=== PATIENT | female | born 1940 | race Caucasian/White ===

== ENCOUNTER 2017-03-01 07:51 | Day surgery (SDC) | payer OTHER ==
[~2017-03-01 07:51] MED LIST: PROPOFOL 500 MG/50 ML EMU IV ONE
[2017-03-01] MEDS ORDERED: PROPOFOL 10 MG/ML EMU IV ONE (09:59)
[2017-03-01 10:49] VITALS: BP 161/88; PULSE 70; RESP 18; TEMP 97.6; O2SAT 98
== END 2017-03-01 11:24 | disposition home or self-care (01) | DRG 951 ==
LOC: SURG 07:51
PROVIDERS: ATTEND Surgery
DX: Z12.11 Encounter for screening for malignant neoplasm of colon (principal); K57.30 Diverticulosis of large intestine without perforation or abscess without bleeding; Z85.038 Personal history of other malignant neoplasm of large intestine; Z80.0 Family history of malignant neoplasm of digestive organs; Z98.0 Intestinal bypass and anastomosis status
CPT/HCPCS: G0105; J2704

== ENCOUNTER 2017-03-04 06:56 | Day surgery (SDC) | payer OTHER ==
[2017-03-04] MEDS ORDERED: PROPOFOL 10 MG/ML EMU IV ONE (07:28)
[2017-03-04] MEDS ORDERED: FENTANYL CITRATE 50 MCG/ML SOL ONE (07:29)
[2017-03-04] MEDS ORDERED: MIDAZOLAM 2 MG/2 ML SOL ONE (08:05)
[2017-03-04] MEDS: LIDOCAINE HCL 2% MPF SOL ONE ×2 (08:17→08:22)
[2017-03-04] MEDS: BUPIVACAINE HCL 0.5% MPF 10 ML SOL ONE ×2 (08:17→08:22)
[2017-03-04 09:06] VITALS: RESP 20
[2017-03-04 09:15] VITALS: BP 150/73; PULSE 59; TEMP 98; O2SAT 95
== END 2017-03-04 09:35 | disposition home health service (06) | DRG 558 ==
LOC: SURG 06:56
PROVIDERS: ATTEND Orthopaedic Surgery
DX: M65.342 Trigger finger, left ring finger (principal)
CPT/HCPCS: J2250; J3010; A6402; J2704

== ENCOUNTER 2019-02-07 18:46 | Emergency (ER) | payer OTHER ==
[2019-02-07 19:23] VITALS: BP 134/81; PULSE 59; RESP 18; TEMP 96.9; O2SAT 98
== END 2019-02-07 20:37 | disposition home or self-care (01) | DRG 204 ==
LOC: ED 18:46
DX: R04.2 Hemoptysis (principal); I10 Essential (primary) hypertension
CPT/HCPCS: 71046; 99282; 99283

== ENCOUNTER 2019-05-02 07:49 | Day surgery (SDC) | payer OTHER ==
[~2019-05-02 07:49] MED LIST changes: +MIDAZOLAM 2 MG/2 ML SOL ONE; -PROPOFOL 500 MG/50 ML EMU IV ONE
[2019-05-02] MEDS ORDERED: ACETAZOLAMIDE 250 MG PO ONE (08:06)
[2019-05-02] MEDS: TETRACAINE HCL 0.5 % 1 DROP SOL ONE ×3 (08:26→09:28)
[2019-05-02] MEDS: PHENYLEPHRINE HCL 10% OPHTHAL SOL ONE ×2 (08:27→08:39)
[2019-05-02] MEDS: CYCLOPENTOLATE 1% SOL ONE ×2 (08:28→08:40)
[2019-05-02] MEDS: KETOROLAC 0.5% OPTH 60 DROP SOL ONE ×2 (08:28→08:40)
[2019-05-02] MEDS ORDERED: MOXIFLOXACIN HCL OPHTH 5 MG/ML SOL ONE (09:20)
[2019-05-02] MEDS ORDERED: POVIDONE IODINE 5% SOL ONE (09:21)
[2019-05-02] MEDS ORDERED: DEXAMETHASONE 20 MG/5 ML (4 MG/ML SOL) ONE (09:21)
[2019-05-02] MEDS ORDERED: LIDOCAINE HCL 1% MPF 30 SOL ONE (09:21)
[2019-05-02] MEDS ORDERED: BSS 500 ML 500 ML IR ONE (09:21)
[2019-05-02] MEDS ORDERED: MIDAZOLAM 2 MG/2 ML SOL ONE (09:53)
[2019-05-02 10:08] VITALS: BP 167/88; PULSE 52; RESP 18; TEMP 97.6; O2SAT 97
== END 2019-05-02 10:35 | disposition home or self-care (01) | DRG 125 ==
LOC: SURG 07:49
PROVIDERS: ATTEND Ophthalmology
DX: H25.89 Other age-related cataract (principal); H40.10X2 Unspecified open-angle glaucoma, moderate stage
CPT/HCPCS: 0191T; 66984; J1100; J2250; A9270-GY; J2001

== ENCOUNTER 2019-05-30 06:00 | Day surgery (SDC) | payer OTHER ==
[~2019-05-30 06:00] MED LIST changes: +ACETAZOLAMIDE 250 MG PO ONE; -MIDAZOLAM 2 MG/2 ML SOL ONE
[2019-05-30] MEDS: PHENYLEPHRINE HCL 10% OPHTHAL SOL ONE ×2 (06:14→06:27)
[2019-05-30] MEDS: TETRACAINE HCL 0.5 % 1 DROP SOL ONE ×3 (06:14→07:35)
[2019-05-30] MEDS: CYCLOPENTOLATE 1% SOL ONE ×2 (06:15→06:27)
[2019-05-30] MEDS: KETOROLAC 0.5% OPTH 60 DROP SOL ONE ×2 (06:15→06:27)
[2019-05-30] MEDS ORDERED: LIDOCAINE HCL 1% MPF 30 SOL ONE (07:00)
[2019-05-30] MEDS ORDERED: DEXAMETHASONE 20 MG/5 ML (4 MG/ML SOL) ONE (07:00)
[2019-05-30] MEDS ORDERED: BSS 500 ML 500 ML IR ONE (07:00)
[2019-05-30] MEDS ORDERED: MOXIFLOXACIN HCL OPHTH 5 MG/ML SOL ONE (07:00)
[2019-05-30] MEDS ORDERED: POVIDONE IODINE 5% SOL ONE (07:00)
[2019-05-30] MEDS ORDERED: MIDAZOLAM 2 MG/2 ML SOL ONE (07:11)
[2019-05-30] MEDS ORDERED: FENTANYL 100MCG/2ML SOL ONE (07:11)
[2019-05-30 08:02] VITALS: BP 143/74; PULSE 58; RESP 20; TEMP 97.2; O2SAT 99
== END 2019-05-30 08:21 | disposition home or self-care (01) | DRG 125 ==
LOC: SURG 06:00
PROVIDERS: ATTEND Ophthalmology
DX: H25.89 Other age-related cataract (principal); H40.10X2 Unspecified open-angle glaucoma, moderate stage
CPT/HCPCS: 0191T; 66982; J1100; J2250; J3010; A9270-GY; C1783; J2001